=== PATIENT | female | born 1990 | race Caucasian/White ===

== ENCOUNTER 2018-06-09 13:06 | Emergency (ER) | payer OTHER, SELFPAY ==
[2018-06-09 13:09] VITALS: BP 113/70; PULSE 84; RESP 16; O2SAT 98; BMI 24.6
[2018-06-09 13:15] VITALS: TEMP 36.8
--- NOTE | 2018-06-09 13:46 | ED.ABDPAIN ---
HPI - Abdominal Pain <Jasmina Holbrook PA-C - Last Filed: 06/09/18 16:31> General Chief Complaint: Abdominal Pain Stated Complaint: LOWER ABDOMINAL PAIN Time Seen by Provider: 06/09/18 13:24 Source: patient Mode of arrival: ambulatory Limitations: no limitations History of Present Illness HPI narrative: This 28-year-old female comes in today due to worsening abdominal pain that started last night. She denies any new injury or trauma. She states that this started more generalized and in the upper, central abdomen, now seems to be more on the mid lower to right side. She states that initially, pain seemed better if she was still and curled up. She states pain is constant, but she will have a few seconds where she has sharp stabbing. It is worse with coughing, walking and jolting. She states that she does not have nausea or vomiting but she has had no appetite and has not eaten for a good 24 hr. She has been drinking water. She denies any urinary symptoms or hematuria. Her last normal bowel movement was 2 days ago which is not atypical. She had a very small amount of diarrhea this morning. She has not had fever at home, no recent illness. She has not had any discharge. She had a ruptured ovarian cyst years ago but states that she had nausea and vomiting with that. She does not think any possibility of . No recent travel or exposure Related Data Home Medications Medication Instructions Recorded Confirmed sertraline 100 mg PO QDAY 06/09/18 06/09/18 Previous Rx's Medication Instructions Recorded norgestimate 0.18 mg/0.215 mg/0.25 1 tab PO QDAY #1 pac 04/17/18 mg-ethinyl estradiol 25 mcg tablet Allergies Allergy/AdvReac Type Severity Reaction Status Date / Time No Known Drug Allergies Allergy Verified 06/09/18 14:19 Review of Systems <Jasmina Holbrook PA-C - Last Filed: 06/09/18 16:31> Review of Systems All systems reviewed & are unremarkable except as noted in HPI and below Exam <Jasmina Holbrook PA-C - Last Filed: 06/09/18 16:31> Narrative Exam Narrative: GENERAL APPEARANCE: Patient resting comfortably, in no distress. HEENT: PERRL, EOMI, no scleral icterus NECK: Supple LUNGS: Clear to auscultation bilaterally. HEART: Rate and rhythm regular, normal S1 and S2, no S3 or S4. ABDOMEN: Soft, nondistended, bowel sounds present x 4 quadrants, no masses palpable, no hepatosplenomegaly. moderate generalized tenderness with increased tenderness over the right upper and most over the right lower quadrant where there is some rebound. Positive Obturator, negative Tong's sign. Moderate tenderness over the suprapubic area as well. EXTREMITIES: No edema, no cyanosis DERMATOLOGIC: No jaundice or exanthem NEUROLOGIC: Alert and oriented with normal speech and coordination Initial Vital Signs Initial Vital Signs: Vital Signs Pulse Rate 84 06/09/18 13:09 Respiratory Rate 16 06/09/18 13:09 Blood Pressure 113/70 06/09/18 13:09 Pulse Oximetry 98 06/09/18 13:09 <Brad Figueroa DO - Last Filed: 06/09/18 16:38> Initial Vital Signs Initial Vital Signs: Vital Signs Pulse Rate 84 06/09/18 13:09 Respiratory Rate 16 06/09/18 13:09 Blood Pressure 113/70 06/09/18 13:09 Pulse Oximetry 98 06/09/18 13:09 Course <Jasmina Holbrook PA-C - Last Filed: 06/09/18 16:31> Additional Information: Reviewed exam and CT findings with Dr. Pratt, taxation accountant for surgery. He has reviewed scan with Dr. Florez. He has evaluated patient and does not find any acute surgical issue at this point, however gave her instructions on monitoring and return if any acutely worsening symptoms and she is agreeable. Dr. Figueroa is here tomorrow and examined patient prior to d/c in case she does return tomorrow to have knowledge of baseline exam findings. Orders Ordered: ED Orders 06/09/18 14:07 CT abdomen pelvis w con Stat 06/09/18 14:10 Complete Blood Count AUTO DIFF Stat Comprehensive Metabolic Panel Stat Lipase Stat Discontinued Medications Ketorolac Tromethamine (Toradol) 30 mg IV NOW ONE Stop: 06/09/18 14:18 Last Admin: 06/09/18 14:31 Dose: 30 mg Vital Signs - 8 hr 06/09/18 13:09 06/09/18 13:15 06/09/18 16:03 Temperature 98.2 F Pulse Rate 84 79 Respiratory Rate 16 16 Blood Pressure 113/70 Blood Pressure [Right Arm] 117/58 L Pulse Oximetry 98 100 <Brad Figueroa DO - Last Filed: 06/09/18 16:38> Orders Ordered: ED Orders 06/09/18 14:07 CT abdomen pelvis w con Stat 06/09/18 14:10 Complete Blood Count AUTO DIFF Stat Comprehensive Metabolic Panel Stat Lipase Stat Discontinued Medications Ketorolac Tromethamine (Toradol) 30 mg IV NOW ONE Stop: 06/09/18 14:18 Last Admin: 06/09/18 14:31 Dose: 30 mg Vital Signs - 8 hr 06/09/18 13:09 06/09/18 13:15 06/09/18 16:03 Temperature 98.2 F Pulse Rate 84 79 Respiratory Rate 16 16 Blood Pressure 113/70 Blood Pressure [Right Arm] 117/58 L Pulse Oximetry 98 100 MDM - Abdominal Pain <Jasmina Holbrook PA-C - Last Filed: 06/09/18 16:31> Lab Data Attestation: I reviewed the patient's lab results. Result diagrams: 06/09/18 14:10 06/09/18 14:10 Lab Results 06/09/18 06/09/18 06/09/18 Range/Units 14:10 14:10 14:10 WBC 7.2 (4.5-11.0) X10^3/uL RBC 4.20 (4.0-5.2) X10^6/uL Hgb 13.3 (12.0-16.0) g/dL Hct 38.4 (36-46) % MCV 91.3 (80-100) fL MCH 31.5 (26-34) PG MCHC 34.5 (30-36) % RDW 13.8 (11.6-14.8) % Plt Count 131 L (150-400) X10^3/uL Neut % (Auto) 77.2 H (50-75) % Lymph % (Auto) 12.5 L (25-40) % Louisa % (Auto) 8.1 (3-14) % Eos % (Auto) 1.7 L (2-4) % Baso % (Auto) 0.5 (0-2) % Neut # (Auto) 5600 (8646-9147) /uL Sodium 140 (137-145) mmol/L Potassium 3.8 (3.4-5.1) mmol/L Chloride 104 (98-107) mmol/L Carbon Dioxide 23 (22-32) mmol/L BUN 8 (7-17) mg/dL Creatinine 0.50 L (0.52-1.04) mg/dL Estimated GFR > 60.0 (>60) mL/min BUN/Creatinine Ratio 16.0 (6-22) Glucose 71 (70-100) mg/dL Calcium 8.8 (8.4-10.2) mg/dL Total Bilirubin 0.8 (0.2-1.3) mg/dL AST 20 (14-36) IU/L ALT 27 (9-52) IU/L Alkaline Phosphatase 36 L (38-126) U/L Total Protein 6.9 (6.3-8.2) g/dL Albumin 4.2 (3.5-5.0) g/dL Globulin 2.7 (1.7-4.1) g/dL Albumin/Globulin Ratio 1.6 (1.0-2.8) Lipase 30 (23-300) U/L Point of care testing: Point of Care Testing Test Results Negative Urine Dip Bedside Urine Glucose Negative Bedside Urine Bilirubin - Negative Bedside Urine Ketone +++ 80 Urine Specific Ryan 1.030 Bedside Urine Occult Blood - Negative Bedside Urine pH 6.0 Bedside Urine Protein +/- 15 Bedside Urine Urobilinogen - Negative Bedside Urine Nitrite - Negative Bedside Urine Leukocytes - Negative Esterase Imaging Data CT scan - abdomen: Radiologist's impression: View Report History [address] [address] [address] Scan Report Signed Patient: Lesly Nava MR#: [id number] : 1990 Acct:[id number] Age/Sex: 28 / F Date of Service: 06/09/18 Loc: ED Accession Number: [id number] Procedure: CT abdomen pelvis w con Ordering Provider: Jasmina Holbrook P.A-C PROCEDURE: CT ABDOMEN PELVIS W CON INDICATIONS: abd pain, increased on right lower TECHNIQUE: After the administration of intravenous contrast, 5 mm thick sections acquired from the diaphragm to the symphysis. 5 mm coronal and sagittal reformats were acquired. For radiation dose reduction, the following was used: automated exposure control, adjustment of mA and/or kV according to patient size. COMPARISON: None. FINDINGS: Image quality: Excellent. ABDOMEN: Lung bases: Lung bases are clear. Heart size is normal. Solid organs: Liver is normal in size and enhancement except for the presence of several small indistinctly marginated foci of contrast enhancement above the background enhancement of the liver. This could represent small 1.5 cm flash filling of hemangiomas but the etiology is indeterminate by CT criteria. These are located within the mid and lower liver, the most superior of which is located on series 3 image 33 in the far rightward margin of the left medial hepatic segment, measuring 1.5 cm, and then more inferiorly at the right posterior hepatic segment (series 3 image 40) as a 1.4 cm slightly enhancing focus. Then, slightly more inferiorly at the anterior border of the gallbladder fossa a 1.5 cm slightly hyperenhancing focus is seen (series 3 image 42). Gallbladder appears normal. Biliary system is non dilated. Pancreas enhances normally. Spleen is normal in size and enhancement. No adrenal nodules. Kidneys demonstrate normal size and enhancement, without hydronephrosis. Peritoneum and bowel: Bowel loops demonstrate normal wall thickness and caliber. No free fluid or air within the abdomen but there is a slight degree of edema within the mesenteric fat adjacent to the inferior margin of the liver parenchyma, seen on series 3 image 53 at the beginning of the paracolic gutter on the right.. Nodes and vessels: No retroperitoneal or mesenteric adenopathy by size criteria. Aorta and inferior vena cava are normal in size. Miscellaneous: No ventral hernias. PELVIS: Genitourinary: Bladder wall thickness is normal. Miscellaneous: No inguinal hernias or adenopathy. Note is made of mild edema within the mesenteric fat of the lower pelvis seen anteriorly (centered on series 3 image 79) and a small amount of free fluid is seen deep within the cul-de-sac centered to right of midline. An ovoid 3.6 x 3.7 cm apparent right adnexal cyst is contiguous with this free fluid. A normal or abnormal appendix cannot be seen. Bones: No suspicious bony lesions. No vertebral body compression fractures. IMPRESSION: 1. There is evidence of some degree of inflammatory change within the peritoneal space best seen within the abdomen and the pelvis to a greater degree as discussed above. There is a small amount of free fluid centered to the right of midline in the deep cul-de-sac adjacent to a dominant right ovarian cyst measuring up to 3.7 cm. A solid mass is not associated. A ruptured ovarian cyst generally does not produce the subtle increased radiodensity within the mesenteric fat noted above distal to the right lower quadrant. 2. A normal or abnormal appendix has not been located. 3. 3 separate 1-1.5 cm foci of indistinctly marginated hyperdense contrast enhancement are seen within the liver parenchyma as noted above. This appearance is nonspecific, could represent flash filling of small hepatic hemangiomas, but it may be warranted to obtain dedicated hepatic ultrasound to determine whether the structures can be independently visualized for possible followup by ultrasound if clinically warranted. The likelihood of metastatic malignancy in this young patient is considered very low. Approved by: Og Florez M.D. on 06/09/2018 at 14:46 <Brad Figueroa DO - Last Filed: 06/09/18 16:38> Lab Data Lab Results 06/09/18 06/09/18 06/09/18 Range/Units 14:10 14:10 14:10 WBC 7.2 (4.5-11.0) X10^3/uL RBC 4.20 (4.0-5.2) X10^6/uL Hgb 13.3 (12.0-16.0) g/dL Hct 38.4 (36-46) % MCV 91.3 (80-100) fL MCH 31.5 (26-34) PG MCHC 34.5 (30-36) % RDW 13.8 (11.6-14.8) % Plt Count 131 L (150-400) X10^3/uL Neut % (Auto) 77.2 H (50-75) % Lymph % (Auto) 12.5 L (25-40) % Louisa % (Auto) 8.1 (3-14) % Eos % (Auto) 1.7 L (2-4) % Baso % (Auto) 0.5 (0-2) % Neut # (Auto) 5600 (8918-9792) /uL Sodium 140 (137-145) mmol/L Potassium 3.8 (3.4-5.1) mmol/L Chloride 104 (98-107) mmol/L Carbon Dioxide 23 (22-32) mmol/L BUN 8 (7-17) mg/dL Creatinine 0.50 L (0.52-1.04) mg/dL Estimated GFR > 60.0 (>60) mL/min BUN/Creatinine Ratio 16.0 (6-22) Glucose 71 (70-100) mg/dL Calcium 8.8 (8.4-10.2) mg/dL Total Bilirubin 0.8 (0.2-1.3) mg/dL AST 20 (14-36) IU/L ALT 27 (9-52) IU/L Alkaline Phosphatase 36 L (38-126) U/L Total Protein 6.9 (6.3-8.2) g/dL Albumin 4.2 (3.5-5.0) g/dL Globulin 2.7 (1.7-4.1) g/dL Albumin/Globulin Ratio 1.6 (1.0-2.8) Lipase 30 (23-300) U/L Point of care testing: Point of Care Testing Test Results Negative Urine Dip Bedside Urine Glucose Negative Bedside Urine Bilirubin - Negative Bedside Urine Ketone +++ 80 Urine Specific Ryan 1.030 Bedside Urine Occult Blood - Negative Bedside Urine pH 6.0 Bedside Urine Protein +/- 15 Bedside Urine Urobilinogen - Negative Bedside Urine Nitrite - Negative Bedside Urine Leukocytes - Negative Esterase Discharge Plan Departure Patient Disposition: Home Clinical Impression: Abdominal pain Discharge Date/Time: 06/09/18 16:28 Interventions: ED Discharge Assessment Last Done: 06/09/18 16:29 Instructions: DI for Abdominal Pain-Adult Activity Restrictions/Additional Instructions: You can return home to normal activity as you tolerate. You can eat and drink quite you wish. Even if you do not feel like eating, please be sure to stay hydrated with clear fluids, and try small amounts of bland food such as a little apple sauce, banana, or white rice. Take ibuprofen, 600-800 mg every 8 hr as needed for pain and you can add Tylenol as needed. (the anti-inflammatory that we gave you in the IV should last the rest of the day so you should not need any until late this evening or tomorrow morning). As we talked about, you should return right away if you have any acutely worsening pain, or new symptoms such as fever or vomiting. Otherwise, please follow-up with your PCP for recheck next week to make sure you are feeling better and review your CT scan. Prescriptions: No Action norgestimate-ethinyl estradiol [Ortho Tri-Cyclen LO (28)] 0.18/0.215/0.25 mg-25 mcg tablet 1 tab PO QDAY Qty: 1 RF: 11 sertraline 100 mg tablet 100 mg PO QDAY RF: 0 Referrals: Tristan Monterroso MD [Primary Care Provider] - <Brad Figueroa DO - Last Filed: 06/09/18 16:38> Cosign ED Attending Sammieature Attestation: I was available for consultation during this patient's emergency department encounter
--- NOTE | 2018-06-09 14:02 | ED_ITS ---
HPI - Abdominal Pain <Jasmina Holbrook PA-C - Last Filed: 06/09/18 16:31> General Chief Complaint: Abdominal Pain Stated Complaint: LOWER ABDOMINAL PAIN Time Seen by Provider: 06/09/18 13:24 Source: patient Mode of arrival: ambulatory Limitations: no limitations History of Present Illness HPI narrative: This 28-year-old female comes in today due to worsening abdominal pain that started last night. She denies any new injury or trauma. She states that this started more generalized and in the upper, central abdomen , now seems to be more on the mid lower to right side. She states that initially, pain seemed better if she was still and curled up. She states pain is constant, but she will have a few seconds where she has sharp stabbing. It is worse with coughing, walking and jolting. She states that she does not have nausea or vomiting but she has had no appetite and has not eaten for a good 24 hr. She has been drinking water. She denies any urinary symptoms or hematuria. Her last normal bowel movement was 2 days ago which is not atypical. She had a very small amount of diarrhea this morning. She has not had fever at home, no recent illness. She has not had any discharge. She had a ruptured ovarian cyst years ago but states that she had nausea and vomiting with that. She does not think any possibility of . No recent travel or exposure Related Data Home Medications Medication Instructions Recorded Confirmed sertraline 100 mg PO QDAY 06/09/18 06/09/18 Previous Rx's Medication Instructions Recorded norgestimate 0.18 mg/0.215 mg/0.25 1 tab PO QDAY #1 pac 04/17/18 mg-ethinyl estradiol 25 mcg tablet Allergies Allergy/AdvReac Type Severity Reaction Status Date / Time No Known Drug Allergies Allergy Verified 06/09/18 14:19 Review of Systems <Jasmina Holbrook PA-C - Last Filed: 06/09/18 16:31> Review of Systems All systems reviewed & are unremarkable except as noted in HPI and below Exam <Jasmina Holbrook PA-C - Last Filed: 06/09/18 16:31> Narrative Exam Narrative: GENERAL APPEARANCE: Patient resting comfortably, in no distress. HEENT: PERRL, EOMI, no scleral icterus NECK: Supple LUNGS: Clear to auscultation bilaterally. HEART: Rate and rhythm regular, normal S1 and S2, no S3 or S4. ABDOMEN: Soft, nondistended, bowel sounds present x 4 quadrants, no masses palpable, no hepatosplenomegaly. moderate generalized tenderness with increased tenderness over the right upper and most over the right lower quadrant where there is some rebound. Positive Obturator, negative Tong's sign. Moderate tenderness over the suprapubic area as well. EXTREMITIES: No edema, no cyanosis DERMATOLOGIC: No jaundice or exanthem NEUROLOGIC: Alert and oriented with normal speech and coordination Initial Vital Signs Initial Vital Signs: Vital Signs Pulse Rate 84 06/09/18 13:09 Respiratory Rate 16 06/09/18 13:09 Blood Pressure 113/70 06/09/18 13:09 Pulse Oximetry 98 06/09/18 13:09 <Brad Figueroa DO - Last Filed: 06/09/18 16:38> Initial Vital Signs Initial Vital Signs: Vital Signs Pulse Rate 84 06/09/18 13:09 Respiratory Rate 16 06/09/18 13:09 Blood Pressure 113/70 06/09/18 13:09 Pulse Oximetry 98 06/09/18 13:09 Course <Jasmina Holbrook PA-C - Last Filed: 06/09/18 16:31> Additional Information: Reviewed exam and CT findings with Dr. Partt, distribution warehouse manager for surgery. He has reviewed scan with Dr. Florez. He has evaluated patient and does not find any acute surgical issue at this point, however gave her instructions on monitoring and return if any acutely worsening symptoms and she is agreeable. Dr. Figueroa is here tomorrow and examined patient prior to d/c in case she does return tomorrow to have knowledge of baseline exam findings. Orders Ordered: ED Orders 06/09/18 14:07 CT abdomen pelvis w con Stat 06/09/18 14:10 Complete Blood Count AUTO DIFF Stat Comprehensive Metabolic Panel Stat Lipase Stat Discontinued Medications Ketorolac Tromethamine (Toradol) 30 mg IV NOW ONE Stop: 06/09/18 14:18 Last Admin: 06/09/18 14:31 Dose: 30 mg Vital Signs - 8 hr 06/09/18 13:09 06/09/18 13:15 06/09/18 16:03 Temperature 98.2 F Pulse Rate 84 79 Respiratory Rate 16 16 Blood Pressure 113/70 Blood Pressure [Right Arm] 117/58 L Pulse Oximetry 98 100 <Brad Figueroa DO - Last Filed: 06/09/18 16:38> Orders Ordered: ED Orders 06/09/18 14:07 CT abdomen pelvis w con Stat 06/09/18 14:10 Complete Blood Count AUTO DIFF Stat Comprehensive Metabolic Panel Stat Lipase Stat Discontinued Medications Ketorolac Tromethamine (Toradol) 30 mg IV NOW ONE Stop: 06/09/18 14:18 Last Admin: 06/09/18 14:31 Dose: 30 mg Vital Signs - 8 hr 06/09/18 13:09 06/09/18 13:15 06/09/18 16:03 Temperature 98.2 F Pulse Rate 84 79 Respiratory Rate 16 16 Blood Pressure 113/70 Blood Pressure [Right Arm] 117/58 L Pulse Oximetry 98 100 MDM - Abdominal Pain <Jasmina Holbrook PA-C - Last Filed: 06/09/18 16:31> Lab Data Attestation: I reviewed the patient's lab results. Result diagrams: 06/09/18 14:10 06/09/18 14:10 Lab Results 06/09/18 06/09/18 06/09/18 Range/Units 14:10 14:10 14:10 WBC 7.2 (4.5-11.0) X10^3/uL RBC 4.20 (4.0-5.2) X10^6/uL Hgb 13.3 (12.0-16.0) g/dL Hct 38.4 (36-46) % MCV 91.3 (80-100) fL MCH 31.5 (26-34) PG MCHC 34.5 (30-36) % RDW 13.8 (11.6-14.8) % Plt Count 131 L (150-400) X10^3/uL Neut % (Auto) 77.2 H (50-75) % Lymph % (Auto) 12.5 L (25-40) % Bullock % (Auto) 8.1 (3-14) % Eos % (Auto) 1.7 L (2-4) % Baso % (Auto) 0.5 (0-2) % Neut # (Auto) 5600 (6001-3797) /uL Sodium 140 (137-145) mmol/L Potassium 3.8 (3.4-5.1) mmol/L Chloride 104 (98-107) mmol/L Carbon Dioxide 23 (22-32) mmol/L BUN 8 (7-17) mg/dL Creatinine 0.50 L (0.52-1.04) mg/dL Estimated GFR > 60.0 (>60) mL/min BUN/Creatinine Ratio 16.0 (6-22) Glucose 71 (70-100) mg/dL Calcium 8.8 (8.4-10.2) mg/dL Total Bilirubin 0.8 (0.2-1.3) mg/dL AST 20 (14-36) IU/L ALT 27 (9-52) IU/L Alkaline Phosphatase 36 L (38-126) U/L Total Protein 6.9 (6.3-8.2) g/dL Albumin 4.2 (3.5-5.0) g/dL Globulin 2.7 (1.7-4.1) g/dL Albumin/Globulin Ratio 1.6 (1.0-2.8) Lipase 30 (23-300) U/L Point of care testing: Point of Care Testing Test Results Negative Urine Dip Bedside Urine Glucose Negative Bedside Urine Bilirubin - Negative Bedside Urine Ketone +++ 80 Urine Specific Healy 1.030 Bedside Urine Occult Blood - Negative Bedside Urine pH 6.0 Bedside Urine Protein +/- 15 Bedside Urine Urobilinogen - Negative Bedside Urine Nitrite - Negative Bedside Urine Leukocytes - Negative Esterase Imaging Data CT scan - abdomen: Radiologist's impression: View Report History [address] [address] [address] Scan Report Signed Patient: Lesly Nava MR#: [id number] : 1990 Acct:[id number] Age/Sex: 28 / F Date of Service: 06/09/18 Loc: ED Accession Number: [id number] Procedure: CT abdomen pelvis w con Ordering Provider: Jasmina Holbrook P.A-C PROCEDURE: CT ABDOMEN PELVIS W CON INDICATIONS: abd pain, increased on right lower TECHNIQUE: After the administration of intravenous contrast, 5 mm thick sections acquired from the diaphragm to the symphysis. 5 mm coronal and sagittal reformats were acquired. For radiation dose reduction, the following was used: automated exposure control, adjustment of mA and/or kV according to patient size. COMPARISON: None. FINDINGS: Image quality: Excellent. ABDOMEN: Lung bases: Lung bases are clear. Heart size is normal. Solid organs: Liver is normal in size and enhancement except for the presence of several small indistinctly marginated foci of contrast enhancement above the background enhancement of the liver. This could represent small 1.5 cm flash filling of hemangiomas but the etiology is indeterminate by CT criteria. These are located within the mid and lower liver, the most superior of which is located on series 3 image 33 in the far rightward margin of the left medial hepatic segment, measuring 1.5 cm, and then more inferiorly at the right posterior hepatic segment (series 3 image 40) as a 1.4 cm slightly enhancing focus. Then, slightly more inferiorly at the anterior border of the gallbladder fossa a 1.5 cm slightly hyperenhancing focus is seen (series 3 image 42). Gallbladder appears normal. Biliary system is non dilated. Pancreas enhances normally. Spleen is normal in size and enhancement. No adrenal nodules. Kidneys demonstrate normal size and enhancement, without hydronephrosis. Peritoneum and bowel: Bowel loops demonstrate normal wall thickness and caliber. No free fluid or air within the abdomen but there is a slight degree of edema within the mesenteric fat adjacent to the inferior margin of the liver parenchyma, seen on series 3 image 53 at the beginning of the paracolic gutter on the right.. Nodes and vessels: No retroperitoneal or mesenteric adenopathy by size criteria. Aorta and inferior vena cava are normal in size. Miscellaneous: No ventral hernias. PELVIS: Genitourinary: Bladder wall thickness is normal. Miscellaneous: No inguinal hernias or adenopathy. Note is made of mild edema within the mesenteric fat of the lower pelvis seen anteriorly (centered on series 3 image 79) and a small amount of free fluid is seen deep within the cul-de-sac centered to right of midline. An ovoid 3.6 x 3.7 cm apparent right adnexal cyst is contiguous with this free fluid. A normal or abnormal appendix cannot be seen. Bones: No suspicious bony lesions. No vertebral body compression fractures. IMPRESSION: 1. There is evidence of some degree of inflammatory change within the peritoneal space best seen within the abdomen and the pelvis to a greater degree as discussed above. There is a small amount of free fluid centered to the right of midline in the deep cul-de-sac adjacent to a dominant right ovarian cyst measuring up to 3.7 cm. A solid mass is not associated. A ruptured ovarian cyst generally does not produce the subtle increased radiodensity within the mesenteric fat noted above distal to the right lower quadrant. 2. A normal or abnormal appendix has not been located. 3. 3 separate 1-1.5 cm foci of indistinctly marginated hyperdense contrast enhancement are seen within the liver parenchyma as noted above. This appearance is nonspecific, could represent flash filling of small hepatic hemangiomas, but it may be warranted to obtain dedicated hepatic ultrasound to determine whether the structures can be independently visualized for possible followup by ultrasound if clinically warranted. The likelihood of metastatic malignancy in this young patient is considered very low. Approved by: Og Florez M.D. on 06/09/2018 at 14:46 <Brad Figueroa DO - Last Filed: 06/09/18 16:38> Lab Data Lab Results 06/09/18 06/09/18 06/09/18 Range/Units 14:10 14:10 14:10 WBC 7.2 (4.5-11.0) X10^3/uL RBC 4.20 (4.0-5.2) X10^6/uL Hgb 13.3 (12.0-16.0) g/dL Hct 38.4 (36-46) % MCV 91.3 (80-100) fL MCH 31.5 (26-34) PG MCHC 34.5 (30-36) % RDW 13.8 (11.6-14.8) % Plt Count 131 L (150-400) X10^3/uL Neut % (Auto) 77.2 H (50-75) % Lymph % (Auto) 12.5 L (25-40) % Bullock % (Auto) 8.1 (3-14) % Eos % (Auto) 1.7 L (2-4) % Baso % (Auto) 0.5 (0-2) % Neut # (Auto) 5600 (9701-3719) /uL Sodium 140 (137-145) mmol/L Potassium 3.8 (3.4-5.1) mmol/L Chloride 104 (98-107) mmol/L Carbon Dioxide 23 (22-32) mmol/L BUN 8 (7-17) mg/dL Creatinine 0.50 L (0.52-1.04) mg/dL Estimated GFR > 60.0 (>60) mL/min BUN/Creatinine Ratio 16.0 (6-22) Glucose 71 (70-100) mg/dL Calcium 8.8 (8.4-10.2) mg/dL Total Bilirubin 0.8 (0.2-1.3) mg/dL AST 20 (14-36) IU/L ALT 27 (9-52) IU/L Alkaline Phosphatase 36 L (38-126) U/L Total Protein 6.9 (6.3-8.2) g/dL Albumin 4.2 (3.5-5.0) g/dL Globulin 2.7 (1.7-4.1) g/dL Albumin/Globulin Ratio 1.6 (1.0-2.8) Lipase 30 (23-300) U/L Point of care testing: Point of Care Testing Test Results Negative Urine Dip Bedside Urine Glucose Negative Bedside Urine Bilirubin - Negative Bedside Urine Ketone +++ 80 Urine Specific Healy 1.030 Bedside Urine Occult Blood - Negative Bedside Urine pH 6.0 Bedside Urine Protein +/- 15 Bedside Urine Urobilinogen - Negative Bedside Urine Nitrite - Negative Bedside Urine Leukocytes - Negative Esterase Discharge Plan Departure Patient Disposition: Home Clinical Impression: Abdominal pain Discharge Date/Time: 06/09/18 16:28 Interventions: ED Discharge Assessment Last Done: 06/09/18 16:29 Instructions: DI for Abdominal Pain-Adult Activity Restrictions/Additional Instructions: You can return home to normal activity as you tolerate. You can eat and drink quite you wish. Even if you do not feel like eating, please be sure to stay hydrated with clear fluids, and try small amounts of bland food such as a little apple sauce, banana, or white rice. Take ibuprofen, 600-800 mg every 8 hr as needed for pain and you can add Tylenol as needed. (the anti- inflammatory that we gave you in the IV should last the rest of the day so you should not need any until late this evening or tomorrow morning). As we talked about, you should return right away if you have any acutely worsening pain, or new symptoms such as fever or vomiting. Otherwise, please follow-up with your PCP for recheck next week to make sure you are feeling better and review your CT scan. Prescriptions: No Action norgestimate-ethinyl estradiol [Ortho Tri-Cyclen LO (28)] 0.18/0.215/0.25 mg- 25 mcg tablet 1 tab PO QDAY Qty: 1 RF: 11 sertraline 100 mg tablet 100 mg PO QDAY RF: 0 Referrals: Tristan Monterroso MD [Primary Care Provider] - <Brad Figueroa DO - Last Filed: 06/09/18 16:38> Cosign ED Attending Sammieature Attestation: I was available for consultation during this patient's emergency department encounter
--- NOTE | 2018-06-09 14:07 | DI.CT.S_ITS ---
PROCEDURE: CT ABDOMEN PELVIS W CON INDICATIONS: abd pain, increased on right lower TECHNIQUE: After the administration of intravenous contrast, 5 mm thick sections acquired from the diaphragm to the symphysis. 5 mm coronal and sagittal reformats were acquired. For radiation dose reduction, the following was used: automated exposure control, adjustment of mA and/or kV according to patient size. COMPARISON: None. FINDINGS: Image quality: Excellent. ABDOMEN: Lung bases: Lung bases are clear. Heart size is normal. Solid organs: Liver is normal in size and enhancement except for the presence of several small indistinctly marginated foci of contrast enhancement above the background enhancement of the liver. This could represent small 1.5 cm flash filling of hemangiomas but the etiology is indeterminate by CT criteria. These are located within the mid and lower liver, the most superior of which is located on series 3 image 33 in the far rightward margin of the left medial hepatic segment, measuring 1.5 cm, and then more inferiorly at the right posterior hepatic segment (series 3 image 40) as a 1.4 cm slightly enhancing focus. Then, slightly more inferiorly at the anterior border of the gallbladder fossa a 1.5 cm slightly hyperenhancing focus is seen (series 3 image 42). Gallbladder appears normal. Biliary system is non dilated. Pancreas enhances normally. Spleen is normal in size and enhancement. No adrenal nodules. Kidneys demonstrate normal size and enhancement, without hydronephrosis. Peritoneum and bowel: Bowel loops demonstrate normal wall thickness and caliber. No free fluid or air within the abdomen but there is a slight degree of edema within the mesenteric fat adjacent to the inferior margin of the liver parenchyma, seen on series 3 image 53 at the beginning of the paracolic gutter on the right.. Nodes and vessels: No retroperitoneal or mesenteric adenopathy by size criteria. Aorta and inferior vena cava are normal in size. Miscellaneous: No ventral hernias. PELVIS: Genitourinary: Bladder wall thickness is normal. Miscellaneous: No inguinal hernias or adenopathy. Note is made of mild edema within the mesenteric fat of the lower pelvis seen anteriorly (centered on series 3 image 79) and a small amount of free fluid is seen deep within the cul-de-sac centered to right of midline. An ovoid 3.6 x 3.7 cm apparent right adnexal cyst is contiguous with this free fluid. A normal or abnormal appendix cannot be seen. Bones: No suspicious bony lesions. No vertebral body compression fractures. IMPRESSION: 1. There is evidence of some degree of inflammatory change within the peritoneal space best seen within the abdomen and the pelvis to a greater degree as discussed above. There is a small amount of free fluid centered to the right of midline in the deep cul-de-sac adjacent to a dominant right ovarian cyst measuring up to 3.7 cm. A solid mass is not associated. A ruptured ovarian cyst generally does not produce the subtle increased radiodensity within the mesenteric fat noted above distal to the right lower quadrant. 2. A normal or abnormal appendix has not been located. 3. 3 separate 1-1.5 cm foci of indistinctly marginated hyperdense contrast enhancement are seen within the liver parenchyma as noted above. This appearance is nonspecific, could represent flash filling of small hepatic hemangiomas, but it may be warranted to obtain dedicated hepatic ultrasound to determine whether the structures can be independently visualized for possible followup by ultrasound if clinically warranted. The likelihood of metastatic malignancy in this young patient is considered very low. Approved by: Og Florez M.D. on 06/09/2018 at 14:46
[2018-06-09 14:21] LABS: Add Manual Diff / Slide Review NO; Basophils Percent Auto 0.5 % (0-2); Eosinophils Percent Auto 1.7 % (2-4); Hematocrit 38.4 % (36-46); Hemoglobin 13.3 g/dL (12.0-16.0); Lymphocytes Percent Auto 12.5 % (25-40); Mean Corpuscular HGB Conc 34.5 % (30-36); Mean Corpuscular Hemoglobin 31.5 PG (26-34); Mean Corpuscular Volume 91.3 fL (80-100); Monocytes Percent Auto 8.1 % (3-14); Neutrophils Absolute Auto 5600 /uL (3000-5900); Neutrophils Percent Auto 77.2 % (50-75); Platelet Count 131 X10^3/uL (150-400); Red Cell Distribution Width 13.8 % (11.6-14.8); White Blood Cell Count 7.2 X10^3/uL (4.5-11.0)
[2018-06-09] MEDS: KETOROLAC 60 MG/2 ML VIAL 30 MG IV (14:31)
[2018-06-09 14:34] LABS: Alanine Aminotransferase 27 IU/L (9-52); Albumin 4.2 g/dL (3.5-5.0); Albumin Globulin Ratio 1.6 (1.0-2.8); Alkaline Phosphatase 36 U/L (38-126); Aspartate Aminotransferase 20 IU/L (14-36); Bilirubin Total 0.8 mg/dL (0.2-1.3); Blood Urea Nitrogen 8 mg/dL (7-17); Calcium 8.8 mg/dL (8.4-10.2); Carbon Dioxide 23 mmol/L (22-32); Chloride 104 mmol/L (98-107); Estimated Glomerular Filt Rate > 60.0 mL/min (>60); Globulin 2.7 g/dL (1.7-4.1); Glucose 71 mg/dL (70-100); HEMOLYSIS 23 (0-50); Lipase 30 U/L (23-300); Potassium 3.8 mmol/L (3.4-5.1); Sodium 140 mmol/L (137-145); Total Protein 6.9 g/dL (6.3-8.2)
[2018-06-09 16:03] VITALS: BP 117/58; PULSE 79; RESP 16; O2SAT 100
--- NOTE | 2018-06-09 19:18 | PM.CN ---
History of Present Illness Date Patient Seen: 06/09/18 Time Patient Seen: 18:00 Chief complaint: LOWER ABDOMINAL PAIN Reason for consult: Abdominal pain Requesting provider: Jasmina Holbrook Narrative: 28-year-old otherwise healthy female who presented emergency department earlier this afternoon with acute onset of lower abdominal pain at approximately 6:30 p.m. yesterday evening. She states she was preparing dinner for her and her family at that time which he had sudden onset of somewhat severe sharp pain in the lower quadrants bilaterally. Pain is more severe slightly on the right side when compared to the left side. Pain does not radiate to the back or the groin. No pain elsewhere in the abdomen. She does not feel nauseous. No vomiting. She has been anorexic since onset of symptoms however. Nevertheless she has been drinking water throughout the day without any difficulty. Reports normal urine function with no dysuria or hematuria. She is passing some flatus but has not moved her bowels in the last 1-2 days. She generally moves her bowels once per day or every other day. Denies fever or chills. She had similar symptoms on 1 prior occasion a number of years ago with a ruptured ovarian cyst, but she states they were not quite as severe and they did not last as long as this current episode, which is now nearly 24 hr duration. Her last menstrual cycle was nearly 4 weeks ago and she is due to start her menses within the next 5-7 days. She generally has somewhat irregular menstrual cycles with 1 or 2 days of heavy bleeding but she has noticed no other unusual symptoms, including vaginal drainage, recently. [facility] Medical History Depression (Chronic) 3 (Resolved) Surgical History No history of previous surgery (Resolved 11/23/17) Social History marital status: Smoking Status: Never smoker alcohol intake: never substance use type: does not use Meds Home Medications Medication Instructions Recorded Confirmed Type norgestimate 0.18 mg/0.215 mg/0.25 1 tab PO QDAY #1 pac 04/17/18 06/09/18 Rx mg-ethinyl estradiol 25 mcg tablet sertraline 100 mg PO QDAY 06/09/18 06/09/18 History Allergies Allergy/AdvReac Type Severity Reaction Status Date / Time No Known Drug Allergies Allergy Verified 06/09/18 14:19 Review of Systems Review of Systems All systems reviewed & are unremarkable except as noted in HPI and below Exam Vital Signs (past 8 hours): - 06/09/18 13:09 06/09/18 13:15 06/09/18 16:03 Temperature 98.2 F Pulse Rate 84 79 Respiratory Rate 16 16 Blood Pressure 113/70 Blood Pressure [Right Arm] 117/58 L Pulse Oximetry 98 100 Oxygen Delivery Method Room Air Narrative Exam Narrative: Entire visit and examination is performed with JAZMINE Joseph at the patient's bedside Patient is lying comfortably on the gurney in no acute distress. Alert oriented x3. She is actually in good spirits and smiling. Temperature 98.2?. Heart rate 79. Blood pressure normal Sclera nonicteric Regular rate and rhythm Abdomen is soft and nondistended. No masses. No hepatomegaly. No obvious hernias. She is tender in the bilateral lower quadrant regions just at approximately the level of the pubic bone. Right side is clearly more tender than the left side. No involuntary guarding or rebound however. She is not particularly tender near McBurney's point. No obvious Rovsing's sign. Extremities show no clubbing, cyanosis, or edema Rectal examination is deferred Objective Labs Result Diagrams: 06/09/18 14:10 06/09/18 14:10 Labs: Laboratory Results - last 24 hr 06/09/18 06/09/18 06/09/18 14:10 14:10 14:10 WBC 7.2 RBC 4.20 Hgb 13.3 Hct 38.4 MCV 91.3 MCH 31.5 MCHC 34.5 RDW 13.8 Plt Count 131 L Neut % (Auto) 77.2 H Lymph % (Auto) 12.5 L Ross % (Auto) 8.1 Eos % (Auto) 1.7 L Baso % (Auto) 0.5 Neut # (Auto) 5600 Sodium 140 Potassium 3.8 Chloride 104 Carbon Dioxide 23 BUN 8 Creatinine 0.50 L Estimated GFR > 60.0 BUN/Creatinine Ratio 16.0 Glucose 71 Calcium 8.8 Total Bilirubin 0.8 AST 20 ALT 27 Alkaline Phosphatase 36 L Total Protein 6.9 Albumin 4.2 Globulin 2.7 Albumin/Globulin Ratio 1.6 Lipase 30 Urinalysis is negative other than ketones which would be anticipated given the patient's relative dehydration. Patient has had CT scan of the abdomen and pelvis which I have personally reviewed with staff radiologist. There is a small amount of free fluid in the pelvis immediately adjacent to a moderate sized ovarian cyst on the right ovary. Uterus is somewhat large but without obvious masses. Small bowel loops are completely normal, but there does appear to be a small amount of very minimal inflammation in the mesentery. Possible hemangiomas in the liver but these are otherwise unremarkable. Liver and spleen and pancreas are otherwise normal. No dilated loops of bowel. Colon appears of normal caliber. However, the appendix cannot be visualized. Assessment & Plan Plan: Assessment/Plan Narrative: 28-year-old female with 24 hr history of bilateral lower quadrant abdominal pain, right side greater than left. She has no evidence of kidney stones or urinary tract infection. Her urine test is negative in the emergency department as well. She has no evidence of bowel obstruction. No compelling evidence of appendicitis by radiographic criteria or by clinical criteria. Although her exam does show some right-sided abdominal tenderness she is otherwise afebrile with a normal white blood cell count. At this point I would suspect gynecologic pathology more than appendicitis. A potential right ruptured ovarian cyst, which she has had in the past, would explain her current symptoms. However, I did primary substance abuse counselor the patient that she could be in the early phases of acute appendicitis which could continue to evolve. Under those circumstances she would experience more significant symptoms such as progressive pain, nausea, vomiting, fever, and progressive anorexia. I discussed all this with her in detail. At this moment I believe she can be safely discharged home as she lives locally and is quite reliable. She understands to return if her symptoms do not improve or progress as above. At that time we would perform re-evaluation and re-examination. All questions were answered to her satisfaction, and she voiced understanding. She was quite agreeable to the plan.
== END 2018-06-09 16:28 | disposition home or self-care (01) ==
PROVIDERS: Emergency Provider Internal Medicine; Family Provider Family Medicine; PCP Family Medicine
DX: R10.9 Unspecified abdominal pain (principal)
CPT/HCPCS: 36591; 74177; 80053; 81003; 81025; 83690; 85025; 96374; 99282; 99285; J1885; Q9967

== ENCOUNTER → 2019-01-15 09:57 | Outpatient (CLI) | payer OTHER, SELFPAY ==
--- NOTE | 2019-01-15 09:59 | DI.RAD.S_ITS ---
PROCEDURE: XR WRIST RT MIN 3V INDICATIONS: R wrist pain TECHNIQUE: 4 views of the wrist were acquired. COMPARISON: None. FINDINGS: Bones: No fractures or dislocations. No suspicious bony lesions. Scaphoid view: Scaphoid is intact. Soft tissues: No suspicious soft tissue calcifications. IMPRESSION: No fracture. No osseous lesion. If symptoms and/or clinical suspicion for pathology persists, further assessment with repeat radiographs (7-10 days) or advanced imaging (e.g. CT, MRI or bone scan) may be helpful. Dictated by: Esthela Boswell MD, PhD on 01/15/2019 at 10:16 Approved by: Esthela Boswell MD, PhD on 01/15/2019 at 10:17
== END ==
PROVIDERS: Family Provider Family Medicine; PCP Family Medicine; Visit Provider Physician Assistant
DX: M25.531 Pain in right wrist (principal)
CPT/HCPCS: 73110

== ENCOUNTER → 2019-06-07 09:36 | Outpatient (CLI) | payer OTHER, SELFPAY ==
[2019-06-07 11:11] LABS: TSH w/ Reflex to FT4 0.87 uIU/mL (0.47-4.68)
== END ==
PROVIDERS: PCP Family Medicine; Visit Provider Family Medicine
DX: R53.83 Other fatigue (principal)
CPT/HCPCS: 36415; 84443

== ENCOUNTER 2019-08-08 14:06 | Observation (INO) | payer OTHER, SELFPAY ==
[2019-08-08 14:10] VITALS: BP 123/87; PULSE 90; RESP 18; TEMP 36.4; O2SAT 96
--- NOTE | 2019-08-08 14:29 | DI.US.S_ITS ---
PROCEDURE: US PELVIC COMPLETE INDICATIONS: LOWER ABDOMINAL PAIN, HISTORY OF CYST TECHNIQUE: Real-time scanning was performed of the pelvic organs, with image documentation. Additional endovaginal scanning was necessary due to incomplete visualization of the adnexal and endometrial structures by transabdominal scanning. COMPARISON: [facility], CT, CT ABDOMEN PELVIS W CON, 06/09/2018, 14:03. FINDINGS: Transabdominal scanning: Limited scanning through the kidneys shows no hydronephrosis. Small amount of free pelvic fluid in the right adnexa and cul-de-sac is likely within physical limits. Endovaginal scanning: Uterus: Uterus is normal in size at 8.6 x 5.6 x 6.9 cm. The endometrium measures 4 mm in combined thickness. Ovaries: Right ovary measures 4.6 x 3.0 x 2.2 cm. Left ovary measures 2.8 x 1.3 x 1.8 cm. There is a 4.3 x 3.9 x 3.2 cm simple cyst in the right ovary. On top ultrasound, there is vascularity to both ovaries. IMPRESSION: 1. A 4.3 x 2.9 x 3.2 cm simple cyst in the right ovary. Recommend a short-term followup ultrasound in 6 weeks. 2. Normal uterus and left ovary. 3. Small amount of pelvic fluid is likely within physiologic limits. Dictated by: Claude Matias M.D. on 08/08/2019 at 16:12 Approved by: Claude Matias M.D. on 08/08/2019 at 16:20
[2019-08-08 14:40] LABS: Add Manual Diff / Slide Review NO; Basophils Absolute Auto 100 /uL (0-100); Basophils Percent Auto 0.6 % (0-2); Eosinophils Absolute Auto 0 /uL (0-450); Eosinophils Percent Auto 0.2 % (2-4); Hematocrit 40.3 % (36-46); Hemoglobin 13.5 g/dL (12.0-16.0); Lymphocytes Absolute Auto 1500 /uL (1100-4500); Lymphocytes Percent Auto 9.6 % (25-40); Mean Corpuscular HGB Conc 33.6 % (30-36); Mean Corpuscular Volume 89.2 fL (80-100); Monocytes Absolute Auto 800 /uL (0-900); Monocytes Percent Auto 5.5 % (3-14); Neutrophils Absolute Auto 12900 /uL (1500-7000); Neutrophils Percent Auto 84.1 % (50-75); Platelet Count 191 X10^3/uL (150-400); Red Blood Cell Count 4.52 X10^6/uL (4.0-5.2); Red Cell Distribution Width 14.1 % (11.6-14.8); White Blood Cell Count 15.4 X10^3/uL (4.5-11.0)
[2019-08-08 14:44] LABS: Amylase 77 U/L (30-110)
[2019-08-08 14:46] LABS: Alanine Aminotransferase 14 IU/L (<35); Albumin 4.8 g/dL (3.5-5.0); Albumin Globulin Ratio 1.5 (1.0-2.8); Alkaline Phosphatase 46 U/L (38-126); Aspartate Aminotransferase 29 IU/L (14-36); Bilirubin Total 0.5 mg/dL (0.2-1.3); Blood Urea Nitrogen 8 mg/dL (7-17); Calcium 9.6 mg/dL (8.4-10.2); Carbon Dioxide 21 mmol/L (22-32); Chloride 104 mmol/L (98-107); Estimated Glomerular Filt Rate > 60.0 mL/min (>60); Globulin 3.1 g/dL (1.7-4.1); Glucose 101 mg/dL (70-100); HEMOLYSIS 16 (0-50); Lipase 47 U/L (23-300); Potassium 3.6 mmol/L (3.4-5.1); Sodium 138 mmol/L (137-145); Total Protein 7.9 g/dL (6.3-8.2)
[2019-08-08] MEDS: SODIUM CHLORIDE 0.9% 1,000 ML 1000 ML IV (14:51)
[2019-08-08] MEDS: ONDANSETRON 4 MG/2 ML INJ IV ×2 (14:52→15:42)
[2019-08-08] MEDS: MORPHINE 4 MG/ML INJ IV (14:52)
--- NOTE | 2019-08-08 14:55 | PC.NURSE ---
tenderness with palpation lower abdominal.
[2019-08-08 15:10] VITALS: BP 111/61; PULSE 81; RESP 20; O2SAT 99
--- NOTE | 2019-08-08 15:10 | PC.ADMIT ---
[email or web address] Admission Note: The patient,Lesly Scott,29 y/o, was given written information regarding hospital policies, unit procedures and contact persons. Patient's smoking status: Never smoker. Vital Signs - 8 hr 08/08/19 14:10 Temperature 97.6 F Pulse Rate 90 Respiratory Rate 18 Blood Pressure 123/87 Pulse Oximetry 96
[2019-08-08 15:30] VITALS: BP 120/59; PULSE 78; RESP 16; O2SAT 100
--- NOTE | 2019-08-08 16:01 | DI.CT.S_ITS ---
PROCEDURE: CT ABDOMEN PELVIS W CON INDICATIONS: abd pain TECHNIQUE: After the administration of intravenous contrast, 5 mm thick sections acquired from the diaphragm to the symphysis. 5 mm coronal and sagittal reformats were acquired. For radiation dose reduction, the following was used: automated exposure control, adjustment of mA and/or kV according to patient size. COMPARISON: [facility], CT, CT ABDOMEN PELVIS W CON, 06/09/2018, 14:03. FINDINGS: Image quality: Excellent. ABDOMEN: Lung bases: Lung bases are clear. Heart size is normal. Solid organs: Liver is normal in size and enhancement. Gallbladder is unremarkable. Biliary system is non dilated. Pancreas enhances normally. Spleen is normal in size and enhancement. No adrenal nodules. Kidneys demonstrate normal size and enhancement, without hydronephrosis. Peritoneum and bowel: Bowel loops demonstrate normal wall thickness and caliber. There is a dilated fluid-filled appendix with mild periappendiceal inflammatory change consistent with acute appendicitis. Minimal free fluid in the pelvis. No free air. Nodes and vessels: No retroperitoneal or mesenteric adenopathy by size criteria. Aorta and inferior vena cava are normal in size. Miscellaneous: No ventral hernias. PELVIS: Genitourinary: Bladder wall thickness is normal. Miscellaneous: No inguinal hernias or adenopathy. Right adnexal cyst measuring approximately 4 cm.2 Bones: No suspicious bony lesions. No vertebral body compression fractures. IMPRESSION: 1. Findings are highly suspicious for nonruptured acute appendicitis. Recommend correlation with labs and clinical examination. 2. Mild free fluid in the pelvis, which may potentially be physiologic. 3. 4 cm right adnexal cyst. Dictated by: Hoang Estrada M.D. on 08/08/2019 at 16:46 Approved by: Hoang Estrada M.D. on 08/08/2019 at 16:51
[2019-08-08] MEDS: PIPERACILLIN-TAZO 3.375 GM/50 ML FROZ.PIGGY IV ×2 (17:34→22:43)
[2019-08-08] MEDS: SODIUM CHLORIDE 0.9% 1,000 ML 150 ML IV (17:34)
[2019-08-08 17:40] VITALS: BP 132/71; PULSE 79; RESP 18; O2SAT 99
--- NOTE | 2019-08-08 17:43 | ED.ABDPAIN ---
HPI - Abdominal Pain <FLAKITA Ferris - Last Filed: 08/08/19 17:48> General Chief Complaint: Abdominal Pain Stated Complaint: Abdominal Pain Time Seen by Provider: 08/08/19 14:10 Source: patient Mode of arrival: Ambulatory Limitations: no limitations History of Present Illness HPI narrative: The patient is a 29-year-old female nonsmoker presents with her sons for chief complaint of abdominal pain that started suddenly 4 hours ago. She complains of nausea and vomiting. Last oral intake was 10 30 a.m.. She denies any fevers. She does state that she has a history of ovarian cyst she denies any dysuria urgency or frequency. She states her last bowel movement was this morning and normal. She denies any previous history of abdominal surgeries. Denies any vaginal discharge. She states she is at no risk for sexually transmitted infections Related Data Previous Rx's Medication Instructions Recorded escitalopram oxalate 5 mg tablet 5 mg PO DAILY #30 tab 06/07/19 norgestimate-ethinyl estradiol 1 tab PO DAILY #84 tab 06/07/19 Allergies Allergy/AdvReac Type Severity Reaction Status Date / Time No Known Drug Allergies Allergy Verified 06/07/19 09:07 Review of Systems <FLAKITA Ferris - Last Filed: 08/08/19 17:48> Review of Systems Narrative: GENERAL: Denies chills, fatigue, malaise, fever, sweats. HEENT: Denies sinus pain, ear pain, sore throat, difficulty swallowing, dizziness. RESPIRATORY: Denies dyspnea, cough, wheezing, hemoptysis, sputum. CARDIOVASCULAR: Denies chest pain, palpitations, orthopnea, edema, GASTROINTESTINAL: See HPI : Denies dysuria, frequency, incontinence, hematuria, urinary retention. MUSCULOSKELETAL: denies weakness, joint pain, or bony pain SKIN: Denies rash, skin lesions, or other NEUROLOGIC: Denies weakness, headache, numbness, change in speech, confusion, seizures, incoordination. PSYCHIATRIC: No concerning psychosocial issues. 12 point review of systems is negative except for those stated above Patient History <FLAKITA Ferris - Last Filed: 08/08/19 17:48> Medical History Depression (Chronic) 3 (Resolved) Social History marital status: Smoking Status: Never smoker alcohol intake: never substance use type: does not use Substance Use Type: marijuana Exam <FLAKITA Ferris - Last Filed: 08/08/19 17:48> Narrative Exam Narrative: GENERAL: This is a well-nourished, well-developed patient, visibly uncomfortable HEAD: Atraumatic. Normocephalic. No temporal or scalp tenderness. EYES: Pupils equal round and reactive. Extraocular motions intact. No scleral icterus. No injection or drainage. ENT: Nose without bleeding, purulent drainage or septal hematoma. Throat without erythema, tonsillar hypertrophy or exudate. Uvula midline. Airway patent. NECK: Trachea midline. No JVD or lymphadenopathy. Supple, nontender, no meningeal signs. CARDIOVASCULAR: Regular rate and rhythm without murmurs, gallops, or rubs. RESPIRATORY: Clear to auscultation. Breath sounds equal bilaterally. No wheezes, rales, or rhonchi. No cough. No increased respiratory effort. No accessory muscle use. GASTROINTESTINAL: Abdomen soft, diffuse pain to palpation right lower left lower quadrants. Guarding right lower quadrant. active bowel sounds all 4 quadrants EXTREMITIES: No clubbing, cyanosis, or edema. No joint tenderness, effusion, or edema noted. BACK: Nontender without deformity or crepitance. No flank tenderness. NEURO: AOx3. SKIN: No rash or erythema. Initial Vital Signs Initial Vital Signs: Vital Signs Temperature 97.6 F 08/08/19 14:10 Pulse Rate 90 08/08/19 14:10 Respiratory Rate 18 08/08/19 14:10 Blood Pressure 123/87 08/08/19 14:10 Pulse Oximetry 96 08/08/19 14:10 <Ashley Lucio DO - Last Filed: 08/08/19 18:26> Initial Vital Signs Initial Vital Signs: Vital Signs Temperature 97.6 F 08/08/19 14:10 Pulse Rate 90 08/08/19 14:10 Respiratory Rate 18 08/08/19 14:10 Blood Pressure 123/87 08/08/19 14:10 Pulse Oximetry 96 08/08/19 14:10 Course <FLAKITA Ferris - Last Filed: 08/08/19 17:48> Orders Ordered: ED Orders 08/08/19 14:25 Amylase Stat Complete Blood Count AUTO DIFF Stat Comprehensive Metabolic Panel Stat Lipase Stat 08/08/19 14:29 US pelvic complete Stat 08/08/19 16:01 CT abdomen pelvis w con Stat Sodium Chloride (Normal Saline 0.9%) 1,000 mls @ 150 mls/hr IV CONT KEIRA Last Infusion: 08/08/19 18:05 Dose: 150 mls/hr Documented by: Admin: 08/08/19 17:34 Dose: 150 mls/hr Documented by: MEGAN Ondansetron HCl (Zofran) 4 mg IV PRN PRN PRN Reason: Vomiting Discontinued Medications Sodium Chloride (Normal Saline 0.9%) 1,000 mls @ 1,000 mls/hr IV BOLUS ONE Stop: 08/08/19 15:28 Last Admin: 08/08/19 14:51 Dose: 1,000 mls/hr Documented by: MEGAN Piperacillin/Tazobactam/Dextrose (Zosyn) 3.375 gm in 50 mls @ 100 mls/hr IV NOW ONE Stop: 08/08/19 17:38 Last Infusion: 08/08/19 18:09 Dose: 0 mls/hr Documented by: Admin: 08/08/19 17:34 Dose: 100 mls/hr Documented by: MEGAN Ketorolac Tromethamine (Toradol) 30 mg IV NOW ONE Stop: 08/08/19 16:36 Last Admin: 08/08/19 17:04 Dose: Not Given Documented by: ROBERTO Morphine Sulfate (Morphine) 4 mg IV NOW ONE Stop: 08/08/19 14:30 Last Admin: 08/08/19 14:52 Dose: 4 mg Documented by: MEGAN Morphine Sulfate (Morphine) 4 mg IV NOW ONE Stop: 08/08/19 17:11 Ondansetron HCl (Zofran) 4 mg IV NOW ONE Stop: 08/08/19 14:30 Last Admin: 08/08/19 14:52 Dose: 4 mg Documented by: MEGAN Ondansetron HCl (Zofran) 4 mg IV NOW ONE Stop: 08/08/19 15:25 Last Admin: 08/08/19 15:42 Dose: 4 mg Documented by: ROBERTO Vital Signs Vital signs: Vital Signs - 8 hr 08/08/19 14:10 08/08/19 15:10 08/08/19 15:30 Temperature 97.6 F Pulse Rate 90 81 78 Respiratory Rate 18 20 16 Blood Pressure 123/87 Blood Pressure [Right Arm] 111/61 120/59 L Pulse Oximetry 96 99 100 <Ashley Lucio, - Last Filed: 08/08/19 18:26> Orders Ordered: ED Orders 08/08/19 14:25 Amylase Stat Complete Blood Count AUTO DIFF Stat Comprehensive Metabolic Panel Stat Lipase Stat 08/08/19 14:29 US pelvic complete Stat 08/08/19 16:01 CT abdomen pelvis w con Stat Sodium Chloride (Normal Saline 0.9%) 1,000 mls @ 150 mls/hr IV CONT KEIRA Last Infusion: 08/08/19 18:05 Dose: 150 mls/hr Documented by: Admin: 08/08/19 17:34 Dose: 150 mls/hr Documented by: MEGAN Ondansetron HCl (Zofran) 4 mg IV PRN PRN PRN Reason: Vomiting Discontinued Medications Sodium Chloride (Normal Saline 0.9%) 1,000 mls @ 1,000 mls/hr IV BOLUS ONE Stop: 08/08/19 15:28 Last Admin: 08/08/19 14:51 Dose: 1,000 mls/hr Documented by: MEGAN Piperacillin/Tazobactam/Dextrose (Zosyn) 3.375 gm in 50 mls @ 100 mls/hr IV NOW ONE Stop: 08/08/19 17:38 Last Infusion: 08/08/19 18:09 Dose: 0 mls/hr Documented by: Admin: 08/08/19 17:34 Dose: 100 mls/hr Documented by: MEGAN Ketorolac Tromethamine (Toradol) 30 mg IV NOW ONE Stop: 08/08/19 16:36 Last Admin: 08/08/19 17:04 Dose: Not Given Documented by: ROBERTO Morphine Sulfate (Morphine) 4 mg IV NOW ONE Stop: 08/08/19 14:30 Last Admin: 08/08/19 14:52 Dose: 4 mg Documented by: MEGAN Morphine Sulfate (Morphine) 4 mg IV NOW ONE Stop: 08/08/19 17:11 Ondansetron HCl (Zofran) 4 mg IV NOW ONE Stop: 08/08/19 14:30 Last Admin: 08/08/19 14:52 Dose: 4 mg Documented by: MEGAN Ondansetron HCl (Zofran) 4 mg IV NOW ONE Stop: 08/08/19 15:25 Last Admin: 08/08/19 15:42 Dose: 4 mg Documented by: SCANZAIRE Vital Signs Vital signs: Vital Signs - 8 hr 08/08/19 14:10 08/08/19 15:10 08/08/19 15:30 Temperature 97.6 F Pulse Rate 90 81 78 Respiratory Rate 18 20 16 Blood Pressure 123/87 Blood Pressure [Right Arm] 111/61 120/59 L Pulse Oximetry 96 99 100 MDM - Abdominal Pain <NOHEMI Ferris- - Last Filed: 08/08/19 17:48> Lab Data Result diagrams: 08/08/19 14:25 08/08/19 14:25 Labs: Lab Results 08/08/19 08/08/19 08/08/19 Range/Units 14:25 14:25 14:25 WBC 15.4 H (4.5-11.0) X10^3/uL RBC 4.52 (4.0-5.2) X10^6/uL Hgb 13.5 (12.0-16.0) g/dL Hct 40.3 (36-46) % MCV 89.2 (80-100) fL MCH 30.0 (26-34) PG MCHC 33.6 (30-36) % RDW 14.1 (11.6-14.8) % Plt Count 191 (150-400) X10^3/uL Neut % (Auto) 84.1 H (50-75) % Lymph % (Auto) 9.6 L (25-40) % [place] % (Auto) 5.5 (3-14) % Eos % (Auto) 0.2 L (2-4) % Baso % (Auto) 0.6 (0-2) % Neut # (Auto) 01049 H (9058-3529) /uL Lymph # (Auto) 1500 (5232-0242) /uL [place] # (Auto) 800 (0-900) /uL Eos # (Auto) 0 (0-450) /uL Baso # (Auto) 100 (0-100) /uL Sodium 138 (137-145) mmol/L Potassium 3.6 (3.4-5.1) mmol/L Chloride 104 (98-107) mmol/L Carbon Dioxide 21 L (22-32) mmol/L BUN 8 (7-17) mg/dL Creatinine 0.50 L (0.52-1.04) mg/dL Estimated GFR > 60.0 (>60) mL/min BUN/Creatinine Ratio 16.0 (6-22) Glucose 101 H (70-100) mg/dL Calcium 9.6 (8.4-10.2) mg/dL Total Bilirubin 0.5 (0.2-1.3) mg/dL AST 29 (14-36) IU/L ALT 14 (<35) IU/L Alkaline Phosphatase 46 (38-126) U/L Total Protein 7.9 (6.3-8.2) g/dL Albumin 4.8 (3.5-5.0) g/dL Globulin 3.1 (1.7-4.1) g/dL Albumin/Globulin Ratio 1.5 (1.0-2.8) Amylase 77 (30-110) U/L Lipase 47 (23-300) U/L Point of care testing: Point of Care Testing Test Results Negative Urine Dip Bedside Urine Glucose Negative Bedside Urine Bilirubin - Negative Bedside Urine Ketone ++ 40 Urine Specific [place] 1.010 Bedside Urine Occult Blood - Negative Bedside Urine pH 7.0 Bedside Urine Protein - Negative Bedside Urine Urobilinogen - Negative Bedside Urine Nitrite - Negative Bedside Urine Leukocytes - Negative Esterase Imaging Data CT scan - abdomen: Radiologist's impression: [address] [address] [address] Scan Report Signed Patient: Lesly Nava [facility]#: [id number] : 1990Acct:[id number] Age/Sex: 29 FDate of Service: 08/08/19 Loc: ED Accession Number: [id number] Procedure: CT abdomen pelvis w con Ordering Provider: Ashley Shipley 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 5 mm coronal and sagittal reformats were acquired. For radiation dose reduction, the following was used: automated exposure control, adjustment of mA and/or kV according to patient size. COMPARISON: [facility], CT, CT ABDOMEN PELVIS W CON, 06/09/2018, 14:03. FINDINGS: Image quality: Excellent. ABDOMEN: Lung bases: Lung bases are clear. Heart size is normal. Solid organs: Liver is normal in size and enhancement. Gallbladder is unremarkable. Biliary system is non dilated. Pancreas enhances normally. Spleen is normal in size and enhancement. No adrenal nodules. Kidneys demonstrate normal size and enhancement, without hydronephrosis. Peritoneum and bowel: Bowel loops demonstrate normal wall thickness and caliber. There is a dilated fluid-filled appendix with mild periappendiceal inflammatory change consistent with acute appendicitis. Minimal free fluid in the pelvis. No free air. Nodes and vessels: No retroperitoneal or mesenteric adenopathy by size criteria. Aorta and inferior vena cava are normal in size. Miscellaneous: No ventral hernias. PELVIS: Genitourinary: Bladder wall thickness is normal. Miscellaneous: No inguinal hernias or adenopathy. Right adnexal cyst measuring approximately 4 cm.2 Bones: No suspicious bony lesions. No vertebral body compression fractures. IMPRESSION: 1. Findings are highly suspicious for nonruptured acute appendicitis. Recommend correlation with labs and clinical examination. 2. Mild free fluid in the pelvis, which may potentially be physiologic. 3. 4 cm right adnexal cyst. Dictated by: Hoang Estrada M.D. on 08/08/2019 at 16:46 Approved by: Hoang Estrada M.D. on 08/08/2019 at 16:51 US - abdomen: Radiologist's impression: Lesly Nava S 29 F [address] [address] Ultrasound Report Signed Patient: [place] TylerLeonardoLesly [facility]#: [id number] : 1990Acct:[id number] Age/Sex: 29 / FDate of Service: 08/08/19 Loc: ED Accession Number: [id number] Procedure: US pelvic complete Ordering Provider: Ashley Shipley PROCEDURE: US PELVIC COMPLETE INDICATIONS: LOWER ABDOMINAL PAIN, HISTORY OF CYST TECHNIQUE: Real-time scanning was performed of the pelvic organs, with image documentation. Additional endovaginal scanning was necessary due to incomplete visualization of the adnexal and endometrial structures by transabdominal scanning. COMPARISON: [facility], CT, CT ABDOMEN PELVIS W ANASTASIYA, 06/09/2018, 14:03. FINDINGS: Transabdominal scanning: Limited scanning through the kidneys shows no hydronephrosis. Small amount of free pelvic fluid in the right adnexa and cul-de-sac is likely within physical limits. Endovaginal scanning: Uterus: Uterus is normal in size at 8.6 x 5.6 x 6.9 cm. The endometrium measures 4 mm in combined thickness. Ovaries: Right ovary measures 4.6 x 3.0 x 2.2 cm. Left ovary measures 2.8 x 1.3 x 1.8 cm. There is a 4.3 x 3.9 x 3.2 cm simple cyst in the right ovary. On top ultrasound, there is vascularity to both ovaries. IMPRESSION: 1. A 4.3 x 2.9 x 3.2 cm simple cyst in the right ovary. Recommend a short-term followup ultrasound in 6 weeks. 2. Normal uterus and left ovary. 3. Small amount of pelvic fluid is likely within physiologic limits. Dictated by: Claude Matias M.D. on 08/08/2019 at 16:12 Approved by: Claude Matias M.D. on 08/08/2019 at 16:20 MDM Narrative Medical decision making narrative: The patient is a 29-year-old female who presents with a chief complaint of abdominal pain nausea vomiting for a few hours. Given her history and acute pain and discomfort on exam, obtain an ultrasound to rule out ovarian torsion. This came up with a right-sided ovarian cyst. An abdominal pelvis CT was ordered given her leukocytosis and persistent pain which came back concerning for acute appendicitis. The patient was given fluids, morphine and Zofran throughout her stay in the emergency department. I spoke with Dr. Tuttle who kindly agreed to admit the patient. She was given Zosyn. Patient states understanding of admission and has no questions or concerns <Ashley Lucio, DO - Last Filed: 08/08/19 18:26> Lab Data Labs: Lab Results 08/08/19 08/08/19 08/08/19 Range/Units 14:25 14:25 14:25 WBC 15.4 H (4.5-11.0) X10^3/uL RBC 4.52 (4.0-5.2) X10^6/uL Hgb 13.5 (12.0-16.0) g/dL Hct 40.3 (36-46) % MCV 89.2 (80-100) fL MCH 30.0 (26-34) PG MCHC 33.6 (30-36) % RDW 14.1 (11.6-14.8) % Plt Count 191 (150-400) X10^3/uL Neut % (Auto) 84.1 H (50-75) % Lymph % (Auto) 9.6 L (25-40) % [place] % (Auto) 5.5 (3-14) % Eos % (Auto) 0.2 L (2-4) % Baso % (Auto) 0.6 (0-2) % Neut # (Auto) 75840 H (1417-2161) /uL Lymph # (Auto) 1500 (4145-7950) /uL [place] # (Auto) 800 (0-900) /uL Eos # (Auto) 0 (0-450) /uL Baso # (Auto) 100 (0-100) /uL Sodium 138 (137-145) mmol/L Potassium 3.6 (3.4-5.1) mmol/L Chloride 104 (98-107) mmol/L Carbon Dioxide 21 L (22-32) mmol/L BUN 8 (7-17) mg/dL Creatinine 0.50 L (0.52-1.04) mg/dL Estimated GFR > 60.0 (>60) mL/min BUN/Creatinine Ratio 16.0 (6-22) Glucose 101 H (70-100) mg/dL Calcium 9.6 (8.4-10.2) mg/dL Total Bilirubin 0.5 (0.2-1.3) mg/dL AST 29 (14-36) IU/L ALT 14 (<35) IU/L Alkaline Phosphatase 46 (38-126) U/L Total Protein 7.9 (6.3-8.2) g/dL Albumin 4.8 (3.5-5.0) g/dL Globulin 3.1 (1.7-4.1) g/dL Albumin/Globulin Ratio 1.5 (1.0-2.8) Amylase 77 (30-110) U/L Lipase 47 (23-300) U/L Point of care testing: Point of Care Testing Test Results Negative Urine Dip Bedside Urine Glucose Negative Bedside Urine Bilirubin - Negative Bedside Urine Ketone ++ 40 Urine Specific [place] 1.010 Bedside Urine Occult Blood - Negative Bedside Urine pH 7.0 Bedside Urine Protein - Negative Bedside Urine Urobilinogen - Negative Bedside Urine Nitrite - Negative Bedside Urine Leukocytes - Negative Esterase MDM Narrative Medical decision making narrative: Case was discussed, plan for admission to general surgery. Discharge Plan Departure Clinical Impression: Acute appendicitis Qualifiers: Acute appendicitis type: unspecified acute appendicitis type Qualified Code(s): K35.80 - Unspecified acute appendicitis Ovarian cyst Qualifiers: Laterality: right Qualified Code(s): N83.201 - Unspecified ovarian cyst, right side Admit Date/Time: 08/08/19 17:10 Admit Provider: Jorge Tuttle
[2019-08-08 18:24] VITALS: BP 110/67; PULSE 63; RESP 17; TEMP 36.7; O2SAT 98
[2019-08-08 18:27] VITALS: BMI 25.0
--- NOTE | 2019-08-08 19:31 | PC.ADMIT ---
[email or web address] Admission Note: The patient,Lesly Scott,29 y/o, was given written information regarding hospital policies, unit procedures and contact persons. Patient's smoking status: Never smoker. Vital Signs - 8 hr 08/08/19 14:10 08/08/19 15:10 08/08/19 15:30 Temperature 97.6 F Pulse Rate 90 81 78 Respiratory Rate 18 20 16 Blood Pressure 123/87 Blood Pressure [Right Arm] 111/61 120/59 L Pulse Oximetry 96 99 100 08/08/19 17:40 08/08/19 18:24 Temperature 98.0 F Pulse Rate 79 63 Respiratory Rate 18 17 Blood Pressure 110/67 Blood Pressure [Right Arm] 132/71 Pulse Oximetry 99 98 1820: Admit to room 203 AC from AD, awake, alert, and pleasant. Ambulated independently to bed. Tenderness to RLQ, no nausea or vomiting. Oriented to room, environment, and plan of care. Call light within reach. NPO status
--- NOTE | 2019-08-08 20:18 | P.HP_ITS ---
History of Present Illness History of Present Illness Date Patient Seen: 08/08/19 Time Patient Seen: 20:18 Chief complaint: Abdominal Pain Narrative: 29-year-old white female patient with a history of ruptured ovarian cysts developed sudden right lower quadrant abdominal pain about noon today. She had some nausea but no vomiting she had several bowel movements and the pain increased so she reported to the emergency department here. [place] [id number] when she arrived here afebrile. Ultrasound of the abdomen confirms a fairly large right ovarian cyst over 4 cm in diameter and some free fluid in the pelvis. CT scan was also done which shows a fluid filled appendix with mild periappendiceal inflammatory change. Patient is admitted for observa tion. Patient History Medical History Depression (Chronic) 3 (Resolved) Surgical History No history of previous surgery (Resolved 11/23/17) Family & Social History Social History: household members family Prior Living Arrangements House Safety & Behavioral: Feels Safe in Current Yes Environment Been Physically Hurt or No Threatened By a Person Tobacco & Substance use: Smoking Status Never smoker alcohol intake never Substance Use Type marijuana Meds Home Medications and Allergies Home Medications Medication Instructions Recorded Confirmed Type escitalopram oxalate 5 mg tablet 5 mg PO DAILY #30 tab 06/07/19 08/08/19 Rx norgestimate-ethinyl estradiol 1 tab PO DAILY #84 tab 06/07/19 08/08/19 Rx Allergies Allergy/AdvReac Type Severity Reaction Status Date / Time No Known Drug Allergies Allergy Verified 06/07/19 09:07 Review of Systems Review of Systems ROS Unobtainable: All systems reviewed & are unremarkable except as noted in HPI and below Exam Vital Signs (past 8 hours): - 08/08/19 14:10 08/08/19 15:10 08/08/19 15:30 Temperature 97.6 F Pulse Rate 90 81 78 Respiratory Rate 18 20 16 Blood Pressure 123/87 Blood Pressure [Right Arm] 111/61 120/59 L Pulse Oximetry 96 99 100 08/08/19 17:40 08/08/19 18:24 Temperature 98.0 F Pulse Rate 79 63 Respiratory Rate 18 17 Blood Pressure 110/67 Blood Pressure [Right Arm] 132/71 Pulse Oximetry 99 98 Oxygen Delivery Method Room Air Narrative Exam Narrative: Patient is afebrile resting comfortably in bed with minimal abdominal pain at this time. Lungs are clear with no rales or wheezes Heart regular rhythm no murmur Abdomen is not distended. Abdomen is soft in all quadrants with no signs of peritoneal irritation. She does have tenderness in the right lower quadrant to deep palpation. Minimal guarding. Remaining physical is unremarkable. Extremities are normal neurologic is normal. Objective Labs Result Diagrams: 08/08/19 14:25 08/08/19 14:25 Labs: Laboratory Results - last 24 hr 08/08/19 08/08/19 08/08/19 14:25 14:25 14:25 WBC 15.4 H RBC 4.52 Hgb 13.5 Hct 40.3 MCV 89.2 MCH 30.0 MCHC 33.6 RDW 14.1 Plt Count 191 Neut % (Auto) 84.1 H Lymph % (Auto) 9.6 L [place] % (Auto) 5.5 Eos % (Auto) 0.2 L Baso % (Auto) 0.6 Neut # (Auto) 09616 H Lymph # (Auto) 1500 [place] # (Auto) 800 Eos # (Auto) 0 Baso # (Auto) 100 Sodium 138 Potassium 3.6 Chloride 104 Carbon Dioxide 21 L BUN 8 Creatinine 0.50 L Estimated GFR > 60.0 BUN/Creatinine Ratio 16.0 Glucose 101 H Calcium 9.6 Total Bilirubin 0.5 AST 29 ALT 14 Alkaline Phosphatase 46 Total Protein 7.9 Albumin 4.8 Globulin 3.1 Albumin/Globulin Ratio 1.5 Amylase 77 Lipase 47 Assessment & Plan Assessment & Plan narrative: Patient has a history of ruptured ovarian cysts. She currently has a right ovarian cyst. There is also some free fluid in her pelvis. She may have a ruptured ovarian cyst again. She has signs of possible early acute appendicitis under CT scan. I will repeat her CBC in the morning and reexamine her in the morning. Certainly if her clinical condition dete riorates and she has signs of peritonitis then I will consider appendectomy. Currently she is on Zosyn. She will have clear liquids the remainder of tonight and then be NPO after midnight.
[2019-08-08 23:40] VITALS: BP 100/45; PULSE 80; RESP 16; TEMP 36.9; O2SAT 98
--- NOTE | 2019-08-09 00:11 | PC.NURSE ---
[employer] Super[employer] Note: 0000: Awake, resting in bed. Pt states her pain level is 1/10, declines any pain medication. IV in place in lt AC. Vital signs stable. NPO at this time for possible surgery in the morning.
[2019-08-09] MEDS: SODIUM CHLORIDE 0.9% 1,000 ML 150 ML IV ×2 (01:30→08:29)
[2019-08-09] MEDS: PIPERACILLIN-TAZO 3.375 GM/50 ML FROZ.PIGGY IV (04:54)
[2019-08-09 04:59] VITALS: BP 122/65; PULSE 79; RESP 16; TEMP 36.9; O2SAT 98
[2019-08-09] MEDS: INFLUENZA VACCINE 0.5 ML SYRINGE IM (08:17)
[2019-08-09 08:48] VITALS: BP 123/64; PULSE 63; RESP 15; TEMP 37.6; O2SAT 98
[2019-08-09 08:53] LABS: Add Manual Diff / Slide Review NO; Basophils Absolute Auto 0 /uL (0-100); Basophils Percent Auto 0.4 % (0-2); Eosinophils Absolute Auto 100 /uL (0-450); Eosinophils Percent Auto 1.2 % (2-4); Lymphocytes Absolute Auto 900 /uL (1100-4500); Lymphocytes Percent Auto 19.5 % (25-40); Mean Corpuscular HGB Conc 34.3 % (30-36); Mean Corpuscular Hemoglobin 30.7 PG (26-34); Mean Corpuscular Volume 89.6 fL (80-100); Monocytes Absolute Auto 300 /uL (0-900); Monocytes Percent Auto 5.6 % (3-14); Neutrophils Absolute Auto 3500 /uL (1500-7000); Neutrophils Percent Auto 73.3 % (50-75); Platelet Count 156 X10^3/uL (150-400); Red Blood Cell Count 3.91 X10^6/uL (4.0-5.2); Red Cell Distribution Width 14.1 % (11.6-14.8)
[2019-08-09 09:02] LABS: White Blood Cell Count 4.7 X10^3/uL (4.5-11.0)
--- NOTE | 2019-08-09 09:09 | P.PN_ITS ---
Subjective Subjective Date Patient Seen: 08/09/19 Time Patient Seen: 09:09 Interval history: I had the patient has significantly improved. In her words she has substantially less pain. She is able to walk to the bathroom without having abdominal pain. She has no nausea and vomiting. She does have a rash on her face and slight facial edema. White count has fallen from 15,000 to 4700. Exam Vital Signs (past 8 hours): - 08/09/19 04:59 08/09/19 08:48 Temperature 98.4 F 99.6 F Pulse Rate 79 63 Respiratory Rate 16 15 Blood Pressure 122/65 123/64 Pulse Oximetry 98 98 Oxygen Delivery Method Room Air Oxygen Flow Rate 0 Narrative Exam Narrative: Patient resting comfortably in bed with minimal discomfort. Her face has a smooth erythematous appearance in both cheeks. There is slight facial edema. No rash on the rest of her body. Abdomen is not distended Abdomen remains soft in all 4 quadrants with mild right suprapubic tenderness. No masses. Objective Labs Result Diagrams: 08/09/19 08:27 08/08/19 14:25 Labs: Laboratory Results - last 24 hr 08/08/19 08/08/19 08/08/19 14:25 14:25 14:25 WBC 15.4 H RBC 4.52 Hgb 13.5 Hct 40.3 MCV 89.2 MCH 30.0 MCHC 33.6 RDW 14.1 Plt Count 191 Neut % (Auto) 84.1 H Lymph % (Auto) 9.6 L [place] % (Auto) 5.5 Eos % (Auto) 0.2 L Baso % (Auto) 0.6 Neut # (Auto) 23915 H Lymph # (Auto) 1500 [place] # (Auto) 800 Eos # (Auto) 0 Baso # (Auto) 100 Sodium 138 Potassium 3.6 Chloride 104 Carbon Dioxide 21 L BUN 8 Creatinine 0.50 L Estimated GFR > 60.0 BUN/Creatinine Ratio 16.0 Glucose 101 H Calcium 9.6 Total Bilirubin 0.5 AST 29 ALT 14 Alkaline Phosphatase 46 Total Protein 7.9 Albumin 4.8 Globulin 3.1 Albumin/Globulin Ratio 1.5 Amylase 77 Lipase 47 08/09/19 08:27 WBC 4.7 D RBC 3.91 L Hgb 12.0 Hct 35.0 L MCV 89.6 MCH 30.7 MCHC 34.3 RDW 14.1 Plt Count 156 Neut % (Auto) 73.3 Lymph % (Auto) 19.5 L [place] % (Auto) 5.6 Eos % (Auto) 1.2 L Baso % (Auto) 0.4 Neut # (Auto) 3500 Lymph # (Auto) 900 L [place] # (Auto) 300 Eos # (Auto) 100 Baso # (Auto) 0 Sodium Potassium Chloride Carbon Dioxide BUN Creatinine Estimated GFR BUN/Creatinine Ratio Glucose Calcium Total Bilirubin AST ALT Alkaline Phosphatase Total Protein Albumin Globulin Albumin/Globulin Ratio Amylase Lipase Assessment & Plan Assessment & Plan narrative: The patient is clinical picture has improved significantly overnight. She has much less abdominal pain no nausea and vomiting. Her exam is much improved. Her white count has dropped to normal. She does have a rash on her face which may be related to a medication which we are uncertain of. I will stop her morphine stopper Zosyn I do not think she has appendicitis. I think she probably has suffered from a ruptured ovarian cyst which has occurred in her past as well. Plan is to further observe her today start a full liquid diet with discontinued antibiotics. Anticipate discharging the patient this afternoon.
[2019-08-09] MEDS: diphenhydrAMINE 25 MG TABLET PO (09:15)
[2019-08-09 09:24] VITALS: BP 123/64; PULSE 63; RESP 15; TEMP 37.6; O2SAT 98
--- NOTE | 2019-08-09 10:33 | PC.NURSE ---
Day shift: Pt tolerating full liquids. Denies any nausea or pain at this time. Friend and Pt's young son in room for support. Call light in reach.
--- NOTE | 2019-08-09 12:02 | PC.NURSE ---
Day shift: Pt tolerating full liquid lunch. Denies any pain or nausea at this time.
[2019-08-09 12:18] VITALS: BP 115/57; PULSE 73; RESP 14; TEMP 37.4; O2SAT 99
--- NOTE | 2019-08-09 14:07 | PM.DS.1 ---
History of Present Illness History of Present Illness Chief complaint: Abdominal Pain Narrative: 29-year-old white female patient with a history of ruptured ovarian cysts developed sudden right lower quadrant abdominal pain about noon today. She had some nausea but no vomiting she had several bowel movements and the pain increased so she reported to the emergency department here. [place] [address] when she arrived here afebrile. Ultrasound of the abdomen confirms a fairly large right ovarian cyst over 4 cm in diameter and some free fluid in the pelvis. CT scan was also done which shows a fluid filled appendix with mild periappendiceal inflammatory change. Patient is admitted for observation. Discharge Providers Provider Date of admission: 08/08/19 17:10 Discharge Date: 08/09/19 Primary care physician: Tristan Monterroso MD Discharge provider: Jorge Tuttle MD Summary Hospital Course Discharge Diagnosis: Ruptured ovarian cyst Hospital Course: Patient was admitted through the emergency department last evening with the possibility of early acute appendicitis also a recognized right ovarian cyst with some fluid in the pelvis on ultrasound. She was observed overnight and through the majority of today. She remained afebrile. [place] 19272 to 4700. This afternoon at 2:00 p.m. patient is totally pain-free she has tolerated a full liquid diet with no nausea vomiting she is ambulating in the halls with no discomfort. Plan is discharged home this afternoon no medications are given. I advised patient to consult with her family physician regarding her recurring ovarian cysts and the possibility of taking some estrogen progesterone combination for that. Status at Discharge Cognitive/behavioral status at discharge: oriented Functional status at discharge: independent ambulation Overall status at discharge: patient is back to baseline Time Spent with Patient Time spent: Less than 30 minutes Exam Vital Signs (past 8 hours): - 08/09/19 08:48 08/09/19 09:24 08/09/19 12:18 Temperature 99.6 F 99.6 F 99.4 F Pulse Rate 63 63 73 Respiratory Rate 15 15 14 Blood Pressure 123/64 123/64 115/57 L Pulse Oximetry 98 98 99 Oxygen Delivery Method Room Air Oxygen Flow Rate 0 Objective Labs Result Diagrams: 08/09/19 08:27 08/08/19 14:25 Labs: Laboratory Results - last 24 hr 08/08/19 08/08/19 08/08/19 14:25 14:25 14:25 WBC 15.4 H RBC 4.52 Hgb 13.5 Hct 40.3 MCV 89.2 MCH 30.0 MCHC 33.6 RDW 14.1 Plt Count 191 Neut % (Auto) 84.1 H Lymph % (Auto) 9.6 L [place] % (Auto) 5.5 Eos % (Auto) 0.2 L Baso % (Auto) 0.6 Neut # (Auto) 93958 H Lymph # (Auto) 1500 [place] # (Auto) 800 Eos # (Auto) 0 Baso # (Auto) 100 Sodium 138 Potassium 3.6 Chloride 104 Carbon Dioxide 21 L BUN 8 Creatinine 0.50 L Estimated GFR > 60.0 BUN/Creatinine Ratio 16.0 Glucose 101 H Calcium 9.6 Total Bilirubin 0.5 AST 29 ALT 14 Alkaline Phosphatase 46 Total Protein 7.9 Albumin 4.8 Globulin 3.1 Albumin/Globulin Ratio 1.5 Amylase 77 Lipase 47 08/09/19 08:27 WBC 4.7 D RBC 3.91 L Hgb 12.0 Hct 35.0 L MCV 89.6 MCH 30.7 MCHC 34.3 RDW 14.1 Plt Count 156 Neut % (Auto) 73.3 Lymph % (Auto) 19.5 L [place] % (Auto) 5.6 Eos % (Auto) 1.2 L Baso % (Auto) 0.4 Neut # (Auto) 3500 Lymph # (Auto) 900 L [place] # (Auto) 300 Eos # (Auto) 100 Baso # (Auto) 0 Sodium Potassium Chloride Carbon Dioxide BUN Creatinine Estimated GFR BUN/Creatinine Ratio Glucose Calcium Total Bilirubin AST ALT Alkaline Phosphatase Total Protein Albumin Globulin Albumin/Globulin Ratio Amylase Lipase Discharge Plan Discharge Plan Discharge Problem: Acute appendicitis, Ovarian cyst Patient Disposition: Home Discharge Med Rec/Prescriptions Prescriptions: Continued escitalopram oxalate [Lexapro] 5 mg tablet 5 mg PO DAILY Qty: 30 RF: 3 norgestimate-ethinyl estradiol [Ortho Tri-Cyclen (28)] 0.18/0.215/0.25 mg-35 mcg (28) tablet 1 tab PO DAILY Qty: 84 RF: 3 Follow up/Referrals: Tristan Monterroso MD [Primary Care Provider] - Provider Discharge Instructions Diet: Diet as Tolerated Skin/Wound/Dressing Care Report to your healthcare provider any signs of infection, such as:: increased pain Discharge Data Primary Care Provider: Tristan Monterroso Attending Provider: Jorge Tuttle Admit Date/Time: 08/08/19 17:10
--- NOTE | 2019-08-09 14:25 | CM.DANOTE ---
Discharge Planning/Care Management DCP: assessment: case received, EMR reviewed, d/c to home order is noted. Met with pt and introduced self and role. Pt is a 29 year old female who admitted to care of Dr. Tuttle/[facility] team last night. Payer: [employer] PCP: Dr. Monterroso. Admission status: confirmed OBS: per UR ZENIA Goodwin. Pt is found up and around in room preparing for home. She reports she feels fine now. Margot, a family friend, is in room waiting to take her home. She will be following up with her PCP re the ovarian cyst. CM Discharge Assessment Start: 08/09/19 14:24 Freq: Status: Active Protocol: Document 08/09/19 14:24 ITV (Rec: 08/09/19 14:25 ITV [id number]) Discharge Planning Assessment Advance Directives? No History Provided By Patient,Medical Record Prior Living Arrangements House Independent with ADL's Yes Is patient alert and oriented? Yes Review Status In Process
--- NOTE | 2019-08-09 14:42 | PC.NURSE ---
Day shift: Pt discharged home by Dr Tuttle. Still denies any pain or nausea. Taken to car driven by her friend in w/ MALKA Alvarado. Paperwork signed and all questions answered. Pt has all personal belongings. No new MD scrips.
== END 2019-08-09 14:52 | disposition home or self-care (01) ==
LOC: ED 14:12 → AC 17:11
PROVIDERS: Admitting Provider Surgery; Emergency Provider Nurse Practitioner Family; PCP Family Medicine; Visit Provider Surgery
DX: N83.201 Unspecified ovarian cyst, right side (principal); R10.9 Unspecified abdominal pain; R11.2 Nausea with vomiting, unspecified; Z23 Encounter for immunization
CPT/HCPCS: 36415; 74177; 76830; 76856; 80053; 81003; 81025; 82150; 83690; 85025; 90471; 90656; 96361; 96365; 96366; 96375; 96376; 99217; 99219; 99283; 99284; G0378; J2270; J2405; J2543; Q2038; Q9967